=== PATIENT | male | born 1965 | race Caucasian/White ===

== ENCOUNTER 2016-09-05 10:17 | Inpatient (IN) | payer SELFPAY ==
--- NOTE | ~2016-09-05 | CR72 ---
[facility] A Service of [facility] RADIOLOGY TEXT RESULTS PATIENT: KAUR RENEE LOCATION: [facility] : [birth year] UNIT #: [id number] AGE: [address]: Jalen Langford MD SEX: M ORDER DR: [id number] [facility] [address] [place], [place] [address] [id number] P MR#: [id number] Acc #: [id number] NAME: KAUR RENEE : 1965 SEX: M STUDY DATE/TIME: 09/05/2016 0930 UNIT: [facility] ROOM: STUDY DESCRIPTION: CR Chest Single View Portable Attending Physician: Jalen Langford M.D. Ordering Physician: Jalen Langford M.D. MEDICAL IMAGING REPORT This report is preliminary unless electronic signature is present EXAM Chest, portable, 09/05/2016, 0930 hours. CLINICAL HISTORY 3-day history of shortness of air. Infected left foot with pain. Elevated blood sugar and diabetes. COMPARISON None. FINDINGS Upright portable chest film demonstrates normal heart size and mediastinal and aortic contours. There is pulmonary venous distension and coarse bilateral interstitial changes diffusely, most likely representing pulmonary edema. No effusion seen. IMPRESSION Normal heart size with diffuse bilateral interstitial changes which are somewhat coarse. Findings most likely represent interstitial edema. No definite effusion seen. STAT * RESULT Dictated by... Mckayla Negron M.D. THIS IS AN ELECTRONICALLY VERIFIED REPORT Mckayla Negron M.D. at 09/05/2016 2:33 PM LUBNAM/remi TD: 09/05/2016 10:09 [facility] A Service of [facility] & [facility] RADIOLOGY TEXT RESULTS PATIENT: KAUR RENEE LOCATION: [facility] : 69 UNIT #: [id number] AGE: [address]: Jalen Langford MD SEX: M ORDER DR: JOB #: [id number] MEDICAL IMAGING REPORT Page 1 of 1 COPY
--- NOTE | ~2016-09-05 | CR126 ---
[facility] A Service of [facility] RADIOLOGY TEXT RESULTS PATIENT: KAUR RENEE LOCATION: [facility] 567-01 : [birth year] UNIT #: [id number] AGE: [address]: Roxana De Luna MD SEX: M ORDER DR: [id number] [facility] [address], [place] [address] [id number] I MR#: [id number] Acc #: [id number] NAME: KAUR RENEE : 1965 SEX: M STUDY DATE/TIME: 09/06/2016 14:28 UNIT: [facility] ROOM: [facility] STUDY DESCRIPTION: CR Foot Complete Min 3 View Lt Attending Physician: Roxana De Luna M.D. Ordering Physician: Physician Non-Staff Primary Care Physician: Primary Care Physician No MEDICAL IMAGING REPORT This report is preliminary unless electronic signature is present EXAM Left foot INDICATION Pain. Erythema and redness. FINDINGS 3 views of the left foot without comparison. There is generalized soft tissue swelling at the first metatarsophalangeal joint. There is mild arthrosis at this area. No underlying osseous abnormalities. IMPRESSION Soft tissue swelling at the first metatarsophalangeal joint. No underlying osseous abnormalities. Dictated by... Singh Pagan M.D. THIS IS AN ELECTRONICALLY VERIFIED REPORT Singh Pagan M.D. at 09/06/2016 4:33 PM BRIGETTE/sonido TD: 09/06/2016 16:28 JOB #: [id number] MEDICAL IMAGING REPORT Page 1 of 1 COPY
--- NOTE | ~2016-09-05 | US136 ---
[facility]. [facility] A Service of [facility] & [facility] RADIOLOGY TEXT RESULTS PATIENT: KAUR RENEE LOCATION: [facility] 567-01 : [birth year] UNIT #: [id number] AGE: [address]: Roxana De Luna MD SEX: M ORDER DR: [id number] [facility] [address] [place], [place] [address] [id number] I MR#: [id number] Acc #: [id number] NAME: KAUR RENEE : 1965 SEX: M STUDY DATE/TIME: 09/07/2016 21:50 UNIT: [facility] ROOM: [facility] STUDY DESCRIPTION: US U/L Ext Art Study Ltd Bilat Attending Physician: Roxana De Luna M.D. Ordering Physician: Ed Doctor [id number] [facility] Primary Care Physician: Primary Care Physician No MEDICAL IMAGING REPORT This report is preliminary unless electronic signature is present EXAM Bilateral ankle-brachial indices. HISTORY Infected left foot with gangrene. Evaluate vascular flow to the extremity. TECHNIQUE Ankle-brachial indices could be measured on the right. The left ankle could not be accessed because of dressings for accurate evaluation. The right-sided indices are normal. The posterior tibial index is 1.02 and the dorsalis pedis index is 1.06 with a toe-brachial index of 1.31. IMPRESSION Unable to perform the study on the left because of dressings. The right-sided ankle-brachial index is normal. STAT * RESULT Dictated by... Ceferino Garcia M.D. THIS IS AN ELECTRONICALLY VERIFIED REPORT Ceferino Garcia M.D. at 09/08/2016 10:07 AM RLF/sole TD: 09/07/2016 22:22 JOB #: [id number] MEDICAL IMAGING REPORT Page 1 of 1 COPY
--- NOTE | ~2016-09-05 | CR20 ---
[facility] A Service of [facility] RADIOLOGY TEXT RESULTS PATIENT: KAUR RENEE LOCATION: [facility] 567-01 : [birth year] UNIT #: [id number] AGE: [address]: Roxana De Luna MD SEX: M ORDER DR: [id number] [facility] [address] [facility] [address] [place], [place] [address] [id number] I MR#: [id number] Acc #: [id number] NAME: KAUR RENEE : 1965 SEX: M STUDY DATE/TIME: 09/06/2016 14:27 UNIT: [facility] ROOM: [facility] STUDY DESCRIPTION: CR Ankle Min 3 Views Lt Attending Physician: Roxana De Luna M.D. Ordering Physician: Ed Qasim Lopez M.D. Primary Care Physician: No Primary Care Physician MEDICAL IMAGING REPORT This report is preliminary unless electronic signature is present EXAM Left ankle radiograph. INDICATION Left ankle pain. Left foot redness and swelling. 5-day duration. FINDINGS 3 views of the left ankle without comparison. There is no acute fracture or dislocation. Alignment is anatomic. There is generalized soft tissue swelling over the lateral ankle. There is prominent calcaneal enthesophytes at the insertion of Achilles tendon and origin of the plantar fascia. IMPRESSION Lateral ankle swelling, however, no underlying osseous abnormalities. Dictated by... Singh Pagan M.D. THIS IS AN ELECTRONICALLY VERIFIED REPORT Singh Pagan M.D. at 09/06/2016 4:33 PM Beatriz/remi TD: 09/06/2016 16:19 JOB #: [id number] MEDICAL IMAGING REPORT Page 1 of 1 COPY
--- NOTE | ~2016-09-05 | EKG ---
PATIENT: KAUR RENEE UNIT #: [id number] Ventricular Rate: 112 BPM Atrial Rate: 112 BPM P-R Interval: 126 ms QRS Duration: 112 ms Q-T Interval: 346 ms QTC Calculation(Bezet): 472 ms P [place]: 63 degrees Calculated R [place]: -42 degrees Calculated T [place]: 94 degrees Diagnosis Line: Sinus tachycardia Diagnosis Line: Left axis deviation Diagnosis Line: Septal infarct , age undetermined Diagnosis Line: Abnormal ECG Diagnosis Line: When compared with ECG of 05-SEP-2016 09:34, Diagnosis Line: (unconfirmed) Diagnosis Line: Septal infarct is now Present Diagnosis Line: Nonspecific T wave abnormality now evident in Diagnosis Line: Inferior leads Diagnosis Line: Confirmed by MINI GRIFFITH MD ([id number]) on 09/07/2016 Diagnosis Line: 4:50:03 AM INTERPRETING MD: NACHO SPRINGER
--- NOTE | ~2016-09-05 | CT16 ---
[facility] A Service of [facility] & [facility] RADIOLOGY TEXT RESULTS PATIENT: KAUR RENEE LOCATION: [facility] : 69 UNIT #: [id number] AGE: [address]: Jalen Langford MD SEX: M ORDER DR: [id number] [facility] [address] [place], [place] [address] [id number] E MR#: [id number] Acc #: [id number] NAME: KAUR RENEE : 1965 SEX: M STUDY DATE/TIME: 09/05/2016 12:00 UNIT: [facility] ROOM: STUDY DESCRIPTION: CT Angio Chest for PE Attending Physician: Jalen Langford M.D. Ordering Physician: Jalen Langford M.D. Primary Care Physician: No Primary Care Physician MEDICAL IMAGING REPORT This report is preliminary unless electronic signature is present EXAM CT angiogram of the chest for PE protocol 09/05/2016 12 o'clock hours HISTORY 50-year-old man with swollen red infected foot for 4 days, shortness of air for 2-3 days with elevated blood sugar, history of diabetes, abnormal chest x-ray today. COMPARISON Chest film 09/05/2016. No prior CT scan TECHNIQUE Dynamic helical CT angiographic images were obtained from the thoracic inlet through the adrenal glands. 3-D sagittal and coronal reconstructions were performed. Contrast was Isovue-370 80 mL IV. Total exam DLP 572 mGy-cm. This CT exam was performed with one or more of the following radiation dose reduction techniques: automatic control, adjustment of mA and/or kV according to patient size, and iterative reconstruction. FINDINGS Images through the thoracic inlet demonstrate no thyroid mass or adenopathy. Images through the chest demonstrate diagnostic quality opacification of the main pulmonary arteries. The peripheral vessels are moderately well opacified. Pulmonary arteries are normal in caliber. No filling defects are seen to suggest the presence of pulmonary emboli. The aorta is moderately well opacified and normal in caliber. There is no dissection. Coronary artery calcifications are present particularly in the left anterior descending coronary artery. There is no pericardial fluid. There is a very small left pleural effusion and trace right pleural effusion dependently. STS. [facility] A Service of [facility] & [facility] RADIOLOGY TEXT RESULTS PATIENT: KAUR RENEE LOCATION: [facility] : 69 UNIT #: [id number] AGE: [address]: Jalen Langford MD SEX: M ORDER DR: The lungs demonstrate underlying centrilobular emphysema with coarse interstitial thickening and scattered ground-glass opacities throughout both lungs. Findings could represent diffuse infection or edema. Edema is favored. Limited views through the upper abdomen demonstrate no acute abnormalities. IMPRESSION 1. No evidence of pulmonary embolism. The aorta is normal in caliber. 2. Lungs are abnormal. There is underlying centrilobular emphysema with coarse bilateral interstitial thickening and patchy ground-glass opacities in both lungs. There is a very small left pleural effusion and trace right pleural effusion. Parenchymal changes in the lungs could represent infection or edema. Edema is favored. 3. Normal cardiac chamber size. There are coronary artery calcifications particularly in the left anterior descending coronary artery where there may be a small noncalcified thrombus as well. STAT * RESULT Dictated by... Mckayla Negron M.D. THIS IS AN ELECTRONICALLY VERIFIED REPORT Mckayla Negron M.D. at 09/05/2016 2:33 PM ELIZABETH/yenny TD: 09/05/2016 12:31 JOB #: [id number] MEDICAL IMAGING REPORT Page 1 of 1 COPY
--- NOTE | ~2016-09-05 | CR126 ---
[facility] A Service of [facility] & [facility] RADIOLOGY TEXT RESULTS PATIENT: KAUR RENEE LOCATION: [facility] : 69 UNIT #: [id number] AGE: [address]: Jalen Langford MD SEX: M ORDER DR: [id number] [facility] [address] [place], [place] [address] [id number] E MR#: [id number] Acc #: [id number] NAME: KAUR RENEE : 1965 SEX: M STUDY DATE/TIME: 09/05/2016 09:43 UNIT: [facility] ROOM: STUDY DESCRIPTION: CR Foot Complete Min 3 View Lt Attending Physician: Jalen Langford M.D. Ordering Physician: Jalen Langford M.D. Primary Care Physician: Primary Care Physician No MEDICAL IMAGING REPORT This report is preliminary unless electronic signature is present EXAM Left foot 3 views, 09/05/2016 09:43 hours HISTORY Painful infected left toe for 3 days. COMPARISON None FINDINGS AP, lateral and oblique views demonstrate normal bone density. There is no fracture, dislocation or periosteal reaction. There is soft tissue swelling at the first metatarsophalangeal joint without erosion or bony destruction. No foreign body or soft tissue gas. IMPRESSION 1. No fracture or dislocation. No periosteal reaction. 2. There is soft tissue swelling at the first metatarsophalangeal joint with trace spurring. There is no erosion or bony destruction. No foreign body or soft tissue gas. Dictated by... Mckayla Negron M.D. THIS IS AN ELECTRONICALLY VERIFIED REPORT Mckayla Negron M.D. at 09/05/2016 2:34 PM ELIZABETH/sonido TD: 09/05/2016 11:15 JOB #: [id number] MEDICAL IMAGING REPORT Page 1 of 1 COPY
--- NOTE | ~2016-09-05 | HP ---
Unit #: [id number] #: [id number] Patient: KAUR RENEE [id number] [address] [address] [id number] E MR#: [id number] NAME: KAUR RENEE ROOM: Age: 50 Sex: M Admission Date: 09/05/2016 : 1965 Attending Physician: Jalen Langford M.D. Primary Care Physician: No Primary Care Physician HISTORY AND PHYSICAL CHIEF COMPLAINT Infected left foot and high sugars. HISTORY OF PRESENT ILLNESS The patient is a 50-year-old male with history of uncontrolled diabetes mellitus and noncompliance with medication. Presented to the emergency room with infected left foot and high sugars. 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 The patient has been on the road for the last 3-4 days and presented here with high sugars. The patient stated he was seen by the wound clinic 8 days ago. The patient had I and D of the left foot wound, and then the patient was discharged from the wound clinic without any antibiotics. The patient has high sugars. The sugar was in the range of 654. The lactic acid is 2.1. The patient is out of metformin for the last 3 months due to noncompliance. PAST MEDICAL HISTORY History of diabetes. PAST SURGICAL HISTORY History of left foot debridement. HOME MEDICATIONS Metformin 1,000 mg b.i.d. ALLERGIES No known drug allergies. SOCIAL HISTORY Smokes a pack of cigarettes daily. No alcohol. No illicit drug abuse. FAMILY HISTORY Reviewed and none. REVIEW OF SYSTEMS A 14-point review of systems was performed, and all the pertinent positive findings are as described above. The remaining are negative. PHYSICAL EXAMINATION GENERAL: The patient is lying on the bed, not in acute distress. VITALS: Temperature is 98.8, pulse 130, respiratory rate 20, blood pressure 147/104, satting 87% on room air. HEENT: Head atraumatic, normocephalic. Pupils are equally round reactive to light and accommodation. Extraocular movements are intact. Dry mucous membranes. Unit #: [id number] #: [id number] Patient: KAUR RENEE NECK: Supple. CHEST: Decreased air entry at the bases. Positive for wheezing. CARDIOVASCULAR: Regular rate and rhythm. ABDOMEN: Soft. Positive bowel sounds. EXTREMITIES: The patient has a left foot wound closed and with fluctuance and surrounding erythema of the left foot. Right foot has dry open wound with no drainage. NEUROLOGIC: Alert, awake, oriented. No gross focal motor deficit. DIAGNOSTIC STUDIES LAB DATA: ABG - pH 7.43, pCO2 40.9, pO2 57.8, bicarb 27.8, oxygen saturation 88.2. Glucose 654, BUN 22, creatinine 1.1, sodium 121, potassium 4.6, chloride 84, bicarb 24, calcium 8.5, total protein 7, AST 32, ALT 47, alkaline phosphatase 128, lactic acid 2.1. Beta hydroxybutyrate is 1.13. INR is 1. Troponin is 1, CK-MB 8.5. WBC 22.8, hemoglobin 13.3, hematocrit 40.1, platelets 228, neutrophils 84%. UA shows 2+ protein, more than 1,000 glucose. IMAGING: Chest x-ray shows normal heart size with diffuse bilateral interstitial changes which are somewhat coarse. Findings most likely represent interstitial edema. No definite effusions are seen. X-ray of the foot shows no fracture or dislocation. There is soft tissue swelling at the first metatarsophalangeal joint with trace spurring. There is no erosion or bony destruction. No foreign body or soft tissue gas. CT of the chest. No evidence of pulmonary embolism. The aorta is normal in caliber. Lungs are abnormal. There is underlying centrilobular emphysema with coarse bilateral interstitial thickening and patchy ground-glass opacities in both lungs. There is a very small left pleural effusion and trace right pleural effusion. Parenchymal changes in the lungs could represent infection or edema. Edema is favored. Normal cardiac chamber size. There are coronary artery calcifications, particularly in the left anterior descending coronary artery where there may be a small noncalcified thrombus, as well. CARDIOVASCULAR: EKG shows sinus tachycardia with left axis deviation and incomplete left bundle branch block, nonspecific ST-T changes. ASSESSMENT 1. Uncontrolled diabetes. 2. Diabetic foot wound. 3. Sepsis. 4. Elevated troponin. 5. Interstitial edema. 6. Emphysema. PLAN Plan to admit the patient to inpatient with telemetry. Continue with IV fluids with normal saline at 125 mL per hour and continue with sliding scale. Continue with IV antibiotics with vancomycin and Unasyn, and will have podiatry consult for the foot wound. Repeat the troponin q.8 x2 and check the echocardiogram for thrombus. Cardiology consult for elevated troponin. Further recommendations will follow. Dictated by Unit #: [id number] #: [id number] Patient: KAUR RENEE M.D. AMA/db TD: 09/05/2016 13:53 JOB #: [id number] HISTORY AND PHYSICAL Page 1 of 1 X X HISTORY AND PHYSICAL
--- NOTE | ~2016-09-05 | EKG ---
PATIENT: KAUR RENEE UNIT #: [id number] Ventricular Rate: 106 BPM Atrial Rate: 106 BPM P-R Interval: 132 ms QRS Duration: 112 ms Q-T Interval: 362 ms QTC Calculation(Bezet): 480 ms P [place]: 68 degrees Calculated R [place]: -43 degrees Calculated T [place]: 75 degrees Diagnosis Line: Sinus tachycardia Diagnosis Line: Left axis deviation Diagnosis Line: Non-specific intra-ventricular conduction delay Diagnosis Line: Abnormal ECG Diagnosis Line: When compared with ECG of 06-SEP-2016 11:05, Diagnosis Line: No significant change was found Diagnosis Line: Confirmed by MARCELL BYNUM MD ([id number]) on Diagnosis Line: 09/07/2016 9:34:52 PM INTERPRETING MD: BETH
--- NOTE | ~2016-09-05 | EKG ---
PATIENT: KAUR RENEE UNIT #: [id number] Ventricular Rate: 97 BPM Atrial Rate: 97 BPM P-R Interval: 132 ms QRS Duration: 110 ms Q-T Interval: 362 ms QTC Calculation(Bezet): 459 ms P [place]: 79 degrees Calculated R [place]: -43 degrees Calculated T [place]: 21 degrees Diagnosis Line: Normal sinus rhythm Diagnosis Line: Possible Left atrial enlargement Diagnosis Line: Left axis deviation Diagnosis Line: Anteroseptal infarct (cited on or before Diagnosis Line: 06-SEP-2016) Diagnosis Line: Nonspecific ST and T wave abnormality Diagnosis Line: Abnormal ECG Diagnosis Line: When compared with ECG of 06-SEP-2016 11:05, Diagnosis Line: No significant change was found Diagnosis Line: Confirmed by MARCELL BYNUM MD ([id number]) on Diagnosis Line: 09/07/2016 9:34:13 PM INTERPRETING MD: BETH
--- NOTE | ~2016-09-05 | EKG ---
PATIENT: KAUR RENEE UNIT #: [id number] Ventricular Rate: 131 BPM Atrial Rate: 131 BPM P-R Interval: 134 ms QRS Duration: 108 ms Q-T Interval: 302 ms QTC Calculation(Bezet): 445 ms P [place]: 67 degrees Calculated R [place]: -43 degrees Calculated T [place]: 81 degrees Diagnosis Line: Sinus tachycardia Diagnosis Line: Left axis deviation Diagnosis Line: Incomplete left bundle branch block Diagnosis Line: Minimal voltage criteria for LVH, may be normal Diagnosis Line: variant Diagnosis Line: Nonspecific ST and T wave abnormality Diagnosis Line: Abnormal ECG Diagnosis Line: No previous ECGs available Diagnosis Line: Confirmed by MINI GRIFFIHT MD ([id number]) on 09/06/2016 Diagnosis Line: 7:10:59 PM INTERPRETING MD: NACHO SPRINGER
--- NOTE | ~2016-09-05 | CO ---
Unit #: [id number] #: [id number] Patient: KAUR RENEE [id number] [address] [place], [place] [address] [id number] I MR#: [id number] NAME: KAUR RENEE ROOM: 567 Age: 50 Sex: M Admission Date: 09/05/2016 : 1965 Attending Physician: Roxana De Luna M.D. CONSULTATION REPORT REASON FOR CONSULT Elevated troponin. HISTORY OF PRESENT ILLNESS This is a 50-year-old white male, new to Cardiology, with a past medical history of uncontrolled diabetes mellitus type 2, on metformin. The patient has a history of left foot wound that has been ongoing for the last couple of months and underwent debridement as an outpatient. He denies hypertension, hyperlipidemia, myocardial infarction, or cerebrovascular accident. He does not follow with a superintendent mechanical, and denies previous cardiac catheterizations. 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 Details are unavailable. Additional risk factors for ischemic heart disease include family history of coronary artery disease and active tobacco abuse. The patient presented to the emergency department with complaints of left foot pain with swelling and redness. He states that about four months ago, he picked at a callus. The skin opened and he started putting Neosporin and Band-Aid on it. He then had some blisters that formed on his right foot on the great toe and second toe. He was sent to Wound Care and the left foot was debrided. The right foot has not healed completely, but does look better. He denies fever, but admits to chills. Over the last 2 days, he has been short of breath, which is new. He does not specifically have reports of chest pain, but states that 2 days ago, he had this weird sensation like a log was being rolled over his body. The pressure started on his head and went to his chest and upper abdomen. It was nonsustained. There were no episodes of diaphoresis, nausea, or vomiting. However, he has had multiple episodes of nausea and vomiting today while in the emergency department. He denies PND or orthopnea. There are no reports of dizziness, palpitations, or syncope. 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 He does not load and unload his truck or lift any heavy items. He does not exercise. In the emergency department, his temperature was 98.8, pulse was 138, respirations 20, blood pressure 147/104, and O2 saturation 87% on room air. Initial labs revealed a glucose level of 654. Sodium was low at 121. Additional labs revealed a white blood cell count of 22.8. Lactic acid was 2.2. Initial troponin was 1.0 with a CK-MB of 8.5. Chest x-ray revealed bilateral interstitial changes suggesting interstitial edema. EKG revealed sinus tachycardia with a rate of 131 beats per minute with a left axis deviation and septal Q-waves as well as nonspecific ST-T wave changes. CTA of the chest revealed no pulmonary embolus with normal aorta. There was some emphysema and a small left pleural effusion and Unit #: [id number] #: [id number] Patient: KAUR RENEE trace right pleural effusion. There was some coronary calcification noted. He was admitted for left foot wound and Podiatry was consulted. He was started on antibiotics. Cardiology was consulted for elevated troponin. The patient is currently anxious, but denies chest pain. He is requesting to go outside to smoke despite being told not to. PAST MEDICAL HISTORY 1. Treadmill stress test approximately two years ago. Reportedly normal per the patient. Records unavailable. 2. Diabetes mellitus type 2, uncontrolled. 3. Left foot wound, status post debridement. 4. History of noncompliance. 5. Active tobacco abuse. 6. Family history of coronary artery disease. PAST SURGICAL HISTORY Left foot debridement. HOME MEDICATIONS Metformin 1000 mg p.o. b.i.d. ALLERGIES No known drug allergies. 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 According to documentation, he lives in [place]. He is an active smoker and smokes up to one pack of cigarettes per day. He has smoked for over 20 years. There are no reports of alcohol or illicit drug use. FAMILY HISTORY Significant for heart disease. His brother at age 53. He had a history of myocardial infarction, coronary artery disease, coronary artery bypass grafting, and angioplasty. His father had no significant health problems. His mother of cancer. REVIEW OF SYSTEMS A 10-point review of systems is negative except for details noted above in the HPI. PHYSICAL EXAMINATION VITAL SIGNS: Temperature 98.8, pulse 118, blood pressure 118/73. CONSTITUTIONAL: This is a 50-year-old white male, in no acute distress. SKIN: Warm and dry. NECK: Supple. No jugular vein distention. No hepatojugular reflux. Normal carotid upstrokes. No carotid bruits auscultated. HEART: S1 and S2. Regular rate and rhythm, but tachycardic. No murmurs, rubs, or gallops. LUNGS: Bilateral breath sounds have fine bibasilar rales. Respirations are even and nonlabored. No wheezes or rhonchi. ABDOMEN: Soft, nontender, and nondistended. Positive bowel sounds auscultated x4 quadrants. No ascites noted. EXTREMITIES: Bilateral lower extremities have no pretibial pitting edema. DP and PT pulses are 1+. Capillary refill is less than 3 seconds. Left foot is erythematous and warm. Ischemic area noted on right medial foot and great toe. DIAGNOSTIC STUDIES Unit #: [id number] #: [id number] Patient: KAUR RENEE LABORATORY RESULTS: White blood cell count 22.8, hemoglobin 13.3, hematocrit 40.1, and platelets 228. Sodium 121, potassium 4.6, chloride 84, CO2 of 24, BUN 22, creatinine 1.1, glucose 654, AST 32, ALT 47. Lactic acid 2.2. BHOB 1.13. INR 1.0. Troponin 1.83 and additional 1.0, CK-MB 8.5. IMAGING STUDIES: Chest x-ray reveals bilateral interstitial changes with interstitial edema. CTA of the chest reveals no pulmonary embolus. Aorta normal. Emphysema noted. Small left pleural effusion. Trace right pleural effusion. Coronary calcification. Final report pending. CARDIOVASCULAR STUDIES: EKG reveals sinus tachycardia with a ventricular rate of 131 beats per minute. Left axis deviation. Septal Q-waves. Nonspecific ST-T wave changes. QTc 445 milliseconds. IMPRESSION 1. Left foot cellulitis with possible gangrene. 2. Acute congestive heart failure. 2D echocardiogram pending. 3. Hyponatremia. 4. Leukocytosis. 5. Sinus tachycardia. 6. Acute septal myocardial infarction. 7. Poorly controlled diabetes mellitus. 8. Family history of coronary artery disease. 9. Active tobacco abuse. PLAN 1. The patient presented to the hospital with complaints of left foot infection as well as shortness of breath. He was admitted for left foot infection and started on antibiotics with a Podiatry consult. 2. Cardiology was consulted for elevated troponin. The patient has ruled in for a non-ST elevation myocardial infarction with Q-waves in the septal leads. 3. He will be started on aspirin, full-dose Lovenox, and low-dose beta-mathieu. 4. In addition, he will be started on topical nitrates with parameters. 5. Cardiac enzymes and EKG will be trended. A fasting lipid profile and TSH will be obtained. 6. We will check a BNP and diurese as needed. 7. The patient has been recommended to undergo a cardiac catheterization, which will likely be completed on or sooner if needed. 8. He has been advised to refrain from tobacco abuse. He has been started on nicotine patch. 9. After coronary angiography, he will need to be started on SHERMAN inhibitor or ARB for afterload reduction. Dictated by... Geovanna Rand APRN TR/sean TD: 09/06/2016 08:16 JOB #: [id number] Unit #: [id number] #: [id number] Patient: KAUR RENEE CONSULTATION REPORT Page 1 of 1 X X CONSULTATION REPORT
--- NOTE | ~2016-09-05 | DS ---
Unit #: [id number] #: [id number] Patient: KAUR RENEE [id number] [address] [address] [id number] MR#: [id number] NAME: KAUR RENEE ROOM: 567 Age: 50 Sex: M Admission Date: 09/05/2016 : 1965 Discharge Date: 09/07/2016 Attending Physician: Roxana De Luna M.D. Primary Care Physician: No Primary Care Physician DISCHARGE SUMMARY DIAGNOSIS ON ADMISSION Uncontrolled diabetes mellitus. DISCHARGE DIAGNOSES 1. Acute septal myocardial infarction. 2. Coronary artery disease. 3. Uncontrolled type 2 diabetes mellitus. 4. Congestive heart failure with ejection fraction of 20%. 5. Left foot diabetic ulcer and wound, status post incision and drainage with drainage of abscess. 6. History of active tobacco abuse. 7. Noncompliance. CONSULTANTS Dr. Barnes in cardiac consultation. Podiatry consult. DIAGNOSTIC DATA CARDIOVASCULAR: Echocardiogram revealed ejection fraction of 20%. There was mild tricuspid regurgitation present. Angiogram revealed ejection fraction of 45%. There was severe coronary artery disease present and coronary artery bypass grafting surgery was recommended. LABORATORY: Creatinine 0.8, sodium 127, potassium 4.5. Total cholesterol 126, LDL 63, HDL 15, TSH 2.9. White blood cell count 14.2. It was 22.8 on admission. Hemoglobin 11.8, platelets 233. Wound culture sensitivity has revealed strep agalactiae. Troponin has peaked at 1.83. IMAGING: Bilateral arterial Doppler, unable to perform on the left because of the dressings. The right ankle CAROLE was normal. CT scan of the chest revealed no evidence of PE. There were changes suggestive of emphysema. HOSPITAL COURSE The patient is a 50-year-old who presented to [facility] with uncontrolled diabetes mellitus. Details are as per admission history and physical. Acute myocardial infarction: The patient was seen by cardiology in consultation, who performed cardiac angiogram which revealed severe coronary artery disease and coronary artery bypass grafting was Unit #: [id number] #: [id number] Patient: KAUR RENEE recommended. The patient stated that he will get it done in [place] as he lives in [place], [place]. Therefore, he stated that he will follow with the doctors there. Left foot diabetic abscess and wound: The patient underwent deep incision and debridement. Abscess was drained. The white blood cell count is coming down. The wound culture grew streptococcus, so the patient will be discharged on antibiotic. Type 2 diabetes mellitus: It is uncontrolled secondary to noncompliance. The patient was advised to follow up with his primary care physician. Tobacco use: The patient was encouraged to quit smoking. PHYSICAL EXAMINATION GENERAL: Today the patient is comfortable and is not in acute distress. VITALS: Temperature 97.6, pulse 92 per minute, respiratory rate 16 per minute, blood pressure 126/74. HEENT: No conjunctival congestion. Sclerae nonicteric. NECK: Supple. Trachea is central. RESPIRATORY: Breath sounds equal bilaterally. There are no wheezes or crackles. HEART: Regular rate and rhythm. S1 and S2. ABDOMEN: Soft and nontender. Bowel sounds are present. EXTREMITIES: The patient has left foot dressing done. SKIN: Warm and dry. FOLLOWUP 1. The patient is advised to follow up with his primary care physician as soon as possible on Sunday. 2. 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 I have discussed the plan with the patient in detail, who shows complete understanding of the fact that he is noncompliant and that can lead to permanent disability and possibly . The plan was discussed with cardiology as well. DISCHARGE MEDICATIONS 1. The patient will be discharged on antibiotic. 2. Diabetic medicine. I have started the patient on glipizide 5 mg p.o. daily. He stated that he will follow up with his family doctor for his diabetes on Sunday. 3. The patient's Glucophage was discontinued because of his distant cardiac catheterization. Dictated by... Cyndi Schaeffer TD: 09/08/2016 08:28 JOB #: [id number] Unit #: [id number] #: [id number] Patient: KAUR RENEE DISCHARGE SUMMARY Page 1 of 1 X Roxana De Luna MD DISCHARGE SUMMARY
[2016-09-05 09:36] LABS: ARTERIAL BLD GAS O2 SATURATION 88.2 % (90.0-100.0); ARTERIAL BLOOD GAS CARBOXY HB 1.4 %sat (0.0-9.0); ARTERIAL BLOOD GAS HCO3 27.5 mmol/L; ARTERIAL BLOOD GAS MET HB 0.7 %sat (0.0-2.0); ARTERIAL BLOOD GAS PCO2 40.9 mmHg (35.0-45.0); ARTERIAL BLOOD GAS PO2 57.8 mmHg (80.0-100); ARTERIAL BLOOD GAS pH 7.436 (7.350-7.450); ARTERIAL DRAW? YES
[2016-09-05 09:37] LABS: ARTERIAL BLOOD GAS ALLEN TEST NORMAL; ARTERIAL BLOOD GAS ART SITE RIGHT RADIAL; ARTERIAL BLOOD GAS DELIVERY NASAL CANNULA
[2016-09-05 09:38] LABS: URINE SOURCE CLEAN CATCH
[2016-09-05 09:44] LABS: URINE APPEARANCE CLEAR; URINE BILIRUBIN NEG (NEG); URINE BLOOD 3+ (NEG); URINE COLOR YELLOW; URINE GLUCOSE >1000 MG/DL (NEG); URINE KETONE TRACE (NEG); URINE LEUKOCYTE ESTERASE NEG (NEG); URINE NITRATE NEG (NEG); URINE PH 5.5 (5-8); URINE PROTEIN 2+ (NEG); URINE SPECIFIC GRAVITY 1.033 (1.003-1.035); URINE UROBILINOGEN 0.2 MG/DL (NEG)
[2016-09-05 09:47] LABS: URINE BACTERIA AUWI NEG (NEGATIVE); URINE SQUAMOUS EPITHELIAL CELL NONE SEEN /[HPF]; UWBCS1 AUWI 0-2 (0-5)
[2016-09-05 10:03] LABS: CULTURE INDICATED? NO
[2016-09-05 10:29] LABS: BASOPHIL# 0.1 X10e3 (0-0.3); BASOPHIL% 0.5 % (0-2.5); EOSINOPHIL% 0.1 % (0.0-7.0); HEMATOCRIT 40.1 % (38.0-50.0); HEMOGLOBIN 13.3 gm/dL (13.0-16.0); LYMPHOCYTE# 1.8 X10e3 (1.0-3.5); LYMPHOCYTE% 7.7 % (17.0-45.0); MEAN CELL VOLUME 90.7 FL (83-96); MEAN CORPUSCULAR HEMOGLOBIN 30.1 PG (28-34); MEAN CORPUSCULAR HGB CONC 33.1 g/dL (30-36); MEAN PLATELET VOLUME 11.5 FL (6.5-11.5); MONOCYTE# 1.8 X10e3 (0-1.0); MONOCYTE% 7.7 % (3.0-12.0); NEUTROPHIL# 19.1 X10e3 (1.5-7.1); PLATELET COUNT 228 X10e3 (140-420); RED BLOOD COUNT 4.42 X10e (3.90-5.60); RED CELL DISTRIBUTION WIDTH 12.4 % (11.0-15.5); WHITE BLOOD COUNT 22.8 X10e3 (4.0-10.5)
[2016-09-05 10:30] LABS: DIFF IND YES
[2016-09-05 10:35] LABS: POC - CKMB 8.5 ng/mL (0.0-7.9)
[2016-09-05 10:38] LABS: PROTHROMBIN TIME (PATIENT) 10.3 SECONDS (9.6-11.5)
[2016-09-05 10:46] LABS: PARTIAL THROMBOPLASTIN TIME 22.8 SECONDS (23.5-31.3)
[2016-09-05 10:53] LABS: ALBUMIN SERUM 2.6 g/dL (3.5-5.0); BETA HYDROXYBUTYRATE 1.13 MMOL/L (0.02-0.27); BILIRUBIN, DIRECT 0.3 mg/dL (0.0-0.2); BILIRUBIN,INDIRECT 0.7 mg/dL (0.0-0.9); CALCIUM SERUM 8.5 mg/dL (8.4-10.2); CREATININE SERUM 1.1 mg/dL (0.6-1.4); POTASSIUM 4.6 mmol/L (3.5-5.1)
[2016-09-05 11:22] LABS: RBC NORMAL YES
[2016-09-05 11:23] LABS: ANISOCYTOSIS SL; PLATELET ESTIMATE NORMAL (NORMAL)
[2016-09-05] MEDS ORDERED: METFORMIN PO (12:53)
[2016-09-05 15:51] LABS: %MB 6.8 % (0.0-4.0); MB 8.2 ng/ml
[2016-09-05 23:37] LABS: %MB 6.7 % (0.0-4.0)
[2016-09-06 07:23] LABS: HEMATOCRIT 34.2 % (38.0-50.0); MEAN CELL VOLUME 89.9 FL (83-96); MEAN CORPUSCULAR HEMOGLOBIN 29.3 PG (28-34); MEAN CORPUSCULAR HGB CONC 32.6 g/dL (30-36); MEAN PLATELET VOLUME 11.6 FL (6.5-11.5); RED BLOOD COUNT 3.8 X10e (3.90-5.60); RED CELL DISTRIBUTION WIDTH 12.7 % (11.0-15.5); WHITE BLOOD COUNT 17.8 X10e3 (4.0-10.5)
[2016-09-06 07:25] LABS: HEMOGLOBIN 11.1 gm/dL (13.0-16.0)
[2016-09-06 07:46] LABS: CALCIUM SERUM 7.6 mg/dL (8.4-10.2); GLOM FILT RATE Estimated 88.6 mL/min (>60); POTASSIUM 4.3 mmol/L (3.5-5.1)
[2016-09-07 06:25] LABS: HEMATOCRIT 35.8 % (38.0-50.0); HEMOGLOBIN 11.8 gm/dL (13.0-16.0); MEAN CORPUSCULAR HEMOGLOBIN 29.6 PG (28-34); MEAN CORPUSCULAR HGB CONC 32.9 g/dL (30-36); MEAN PLATELET VOLUME 11.4 FL (6.5-11.5); RED BLOOD COUNT 3.97 X10e (3.90-5.60); RED CELL DISTRIBUTION WIDTH 12.9 % (11.0-15.5); WHITE BLOOD COUNT 14.2 X10e3 (4.0-10.5)
[2016-09-07 06:40] LABS: PARTIAL THROMBOPLASTIN TIME 27.1 SECONDS (23.5-31.3); PROTHROMBIN TIME (PATIENT) 10.7 SECONDS (9.6-11.5)
[2016-09-07 07:31] LABS: BUN/CREATININE RATIO 38.75; CALCIUM SERUM 7.8 mg/dL (8.4-10.2); CREATININE SERUM 0.8 mg/dL (0.6-1.4); GLOM FILT RATE Estimated 105.7 mL/min (>60); POTASSIUM 4.5 mmol/L (3.5-5.1)
[2016-09-08] MEDS ORDERED: NITROGLYGERIN0.4 MG SL (09:15)
[2016-09-08] MEDS ORDERED: IMDUR-ER30 M1 PO (09:16)
[2016-09-08] MEDS ORDERED: LASIX20 MG PO (09:17)
[2016-09-08] MEDS ORDERED: METOPROLOL SUCC25 MG PO (09:17)
[2016-09-08] MEDS ORDERED: LIPITOR80 MG PO (09:18)
[2016-09-08] MEDS ORDERED: ASPIRIN81 MG PO (09:18)
[2016-09-08] MEDS ORDERED: K-DUR20 ME2 PO (09:19)
[2016-09-08] MEDS ORDERED: CLOPIDOGREL75 MG PO (09:20)
[2016-09-08] MEDS ORDERED: DOXYCYCLINE HY100 M3 PO (09:22)
[2016-09-08] MEDS ORDERED: GLIPIZIDE5 GM PO (09:22)
== END 2016-09-08 10:42 | disposition home or self-care (01) | DRG 280 ==
LOC: CED 10:17 → CEDOF 13:11 → C5C 18:51
PROVIDERS: Emergency Medicine; Internal Medicine; Internal Medicine Cardiovascular Disease; Nurse Practitioner Family
PROC: B246ZZZ Ultrasonography of Right and Left Heart (ICD-10-PCS; 2016-09-05)
PROC: B32 Imaging, Upper Arteries, Computerized Tomography (CT Scan) (ICD-10-PCS; 2016-09-05)
PROC: 4A023N7 Measurement of Cardiac Sampling and Pressure, Left Heart, Percutaneous Approach (ICD-10-PCS; principal; 2016-09-07)
PROC: B2111ZZ Fluoroscopy of Multiple Coronary Arteries using Low Osmolar Contrast (ICD-10-PCS; 2016-09-07)
PROC: B2151ZZ Fluoroscopy of Left Heart using Low Osmolar Contrast (ICD-10-PCS; 2016-09-07)
DX: I21.29 ST elevation (STEMI) myocardial infarction involving other sites (principal); I50.41 Acute combined systolic (congestive) and diastolic (congestive) heart failure; E11.65 Type 2 diabetes mellitus with hyperglycemia; E11.51 Type 2 diabetes mellitus with diabetic peripheral angiopathy without gangrene; L03.116 Cellulitis of left lower limb; I07.1 Rheumatic tricuspid insufficiency; I25.110 Atherosclerotic heart disease of native coronary artery with unstable angina pectoris; F17.210 Nicotine dependence, cigarettes, uncomplicated; J44.9 Chronic obstructive pulmonary disease, unspecified; Z79.84 Long term (current) use of oral hypoglycemic drugs; Z91.19 Patient's noncompliance with other medical treatment and regimen; B95.5 Unspecified streptococcus as the cause of diseases classified elsewhere
CPT/HCPCS: 36415; 36600; 71010; 71275; 73610; 73630; 80048; 80061; 80076; 80202; 81003; 82010; 82150; 82550; 82553; 82803; 82947; 83605; 83690; 83880; 84443; 84484; 85025; 85027; 85610; 85730; 87040; 87070; 87077; 87102; 87107; 87186; 87205; 87206; 93005; 93306; 93922; 94760; 96361; 96374; 96375; 99285; C1769; C1887; C1894; C9113; J0295; J1644; J1650; J1815; J1940; J2250; J2405; J2543; J2765; J3010; J3370; Q9967